=== PATIENT | female | born 1945 | race African-American/Black ===

== ENCOUNTER 2017-01-20 09:03 | Day surgery (SDC) | payer OTHER ==
[~2017-01-20] VITALS: Ht 149.9 cm; Wt 63.5 kg
[~2017-01-20 09:03] MED LIST: ALEVE220 MG PO; ASPIR 8181 M1 PO; ASPIRIN81 M2 PO; CALCIUM500 M4 PO; DAILY VALUE1 EACH PO; LEVO-T50 MCG PO; LEVOTHYROXINE50 MCG PO; LEVOTHYROXINE75 MCG PO; LIPITOR10 MG PO; MAGNESIUM OXID200 MG PO; MELOXICAM7.5 MG PO; MOTRIN800 MG PO; OMEGA-3 1,0001 EACH PO; SYNTHROID50 MCG PO; VITAMIN B-12250 MCG PO; ZOFRAN ODT4 MG PO
== END 2017-01-20 15:15 | disposition home or self-care (01) ==
LOC: CATH 09:03
DX: R07.9 Chest pain, unspecified (principal); I10 Essential (primary) hypertension; E03.9 Hypothyroidism, unspecified; I34.0 Nonrheumatic mitral (valve) insufficiency; R94.30 Abnormal result of cardiovascular function study, unspecified; Z79.82 Long term (current) use of aspirin
CPT/HCPCS: C1769; C1887; J1644; J2250; J3010; J7050